=== PATIENT | male | born 1975 | race Caucasian/White ===

== ENCOUNTER 2022-01-07 18:07 | Emergency (ER) | payer OTHER, SELFPAY ==
[2022-01-07 18:47] VITALS: BP 158/98; PULSE 75; RESP 20; TEMP 36.6; O2SAT 100
--- NOTE | 2022-01-07 19:55 | ED.WOUNDLAC ---
HPI - Wound/Laceration General Chief Complaint: Wound/Laceration Stated Complaint: lac left forearm Time Seen by Provider: 01/07/22 19:40 Source: patient, RN notes reviewed and old records reviewed Mode of arrival: ambulatory Limitations: no limitations History of Present Illness HPI narrative: 46 year old male presents to [facility] care with complaints of laceration to his left forearm when he stuck his arm into closet to retrieve something and got it caught on extending nail with laceration to his forearm. occurred,Patient reports that he cleaned at home and placed bandage on arm to control bleeding. Patient denies any acute pain to site. Patient reports that his tetanus is up to date. Onset (ago): hour(s) (1 hour prior to arrival) Location: other (left forearm) Extremity Location: Left: forearm Place: home Patient tetanus UTD: Yes Treatments prior to arrival: bandage Related Data Allergies Allergy/AdvReac Type Severity Reaction Status Date / Time No Known Allergies Allergy Unknown Unknown Verified 10/23/18 12:31 Review of Systems Review of Systems: CONSTITUTIONAL: Denies fever, chills, or sweats. EYES: Denies visual changes, redness, or discharge. ENT: Denies rhinorrhea, congestion, sore throat, or otalgia. CARDIOVASCULAR: Denies chest pain, palpitations, or edema. RESPIRATORY: Denies cough or dyspnea. GASTROINTESTINAL: Denies abdominal pain, nausea, vomiting, or diarrhea. GENITOURINARY: Denies dysuria or hematuria. SKIN: Positive for laceration to left forearm MUSCULOSKELETAL: Denies back pain, joint pain, or myalgia. NEUROLOGIC: Denies headache, numbness, or weakness. PSYCHIATRIC: Denies anxiety or depression. All systems reviewed & are unremarkable except as noted in HPI and below PMFSH Family History Family History Mother Family history of malignant neoplasm Social History Social History Smoking end date: 04/11/08 Alcohol intake: current Comments At time of signature, agree with nursing past medical, surgical, social and family history. There is no relevant family history pertinent to the presenting complaint Exam Narrative: GENERAL: Well-appearing, well-nourished, and in no acute distress. HEAD: Normocephalic, atraumatic. EYES: PERRLA and EOMI. ENT: Nares clear, no rhinorrhea or epistaxis. Mucous membranes moist.TM's normal with good light reflex, throat pink with no lesions or swelling NECK: Supple.no lymphadenopathy CHEST: Clear to auscultation. No respiratory distress.SAO2 100% on room air HEART: Regular rate and rhythm. No murmur heard. Normal peripheral pulses. ABDOMEN: Soft, nontender, nondistended, normal active bowel sounds. EXTREMITIES: Normal range of motion. No edema. SKIN: Warm, dry, no rash.3cm linear laceration to lateral aspect of left forearm with small flap area at distal aspect of wound, cleansed well with flecks of paint noted in wound, some active bleeding noted noted after cleansing. NEURO: No focal deficits. Alert and oriented x3. Course Course Level of Care: Express Care Visit Vital Signs Vital signs: Vital Signs Temperature 36.6 C 01/07/22 18:47 Pulse Rate 75 01/07/22 18:47 Respiratory Rate 01/07/22 18:47 Blood Pressure 158/98 H 01/07/22 18:47 Pulse Oximetry 100 01/07/22 18:47 Oxygen Delivery Room Air 01/07/22 18:47 Temperature 36.6 C 01/07/22 18:47 Pulse Rate 75 01/07/22 18:47 Respiratory Rate 01/07/22 18:47 Blood Pressure 158/98 H 01/07/22 18:47 Pulse Oximetry 100 01/07/22 18:47 Oxygen Delivery Room Air 01/07/22 18:47 Procedures Laceration left forearm: Date: 01/07/22 Time: 19:55 Site: upper extremity Side (If applicable): left Size (cm): 3 Description: linear and flap (at distal edge) Depth: simple, single layer Local Anesthetic: lidocaine 1% Amount of an
== END 2022-01-07 20:38 | disposition home or self-care (01) ==
PROVIDERS: Emergency Provider Registered Nurse
DX: S51.812A Laceration without foreign body of left forearm, initial encounter (principal); W45.0XXA Nail entering through skin, initial encounter; Z87.891 Personal history of nicotine dependence
CPT/HCPCS: 12002; 99213; G0463

== ENCOUNTER 2023-11-29 18:15 | Emergency (ER) | payer OTHER, SELFPAY ==
--- NOTE | ~2023-11-29 | XR_ITS ---
EXAMINATION: XR finger 2nd RT min 2V DATE: 11/29/2023 18:44 INDICATION: Laceration at the distal right second digit TECHNIQUE: Dorsal palmar, lateral and 2 oblique views of the right second digit were obtained COMPARISON: None FINDINGS: Bone alignment is normal. Subtle abrupt cortical discontinuity at the tuft of the right second distal phalanx in one of the oblique images consistent with open/compound fracture. No displaced bone fragm ents identified. 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 Laceration at the tip of the right second digit. No radiopaque foreign bodies. IMPRESSION: 1. Likely tiny post traumatic open cortical defect/fracture at the tuft of the right first distal pha lanx. Reviewed, dictated and finalized at location A. IMPRESSION: 1. Likely tiny post traumatic open cortical defect/fracture at the tuft of the right first distal phalanx.
[2023-11-29 18:30] VITALS: BP 150/91; PULSE 87; RESP 16; TEMP 36.7; O2SAT 98
--- NOTE | 2023-11-29 18:58 | ED.WOUNDLAC ---
HPI - Wound/Laceration General Chief Complaint: Wound/Laceration Stated Complaint: pointer finger right hand injury Time Seen by Provider: 11/29/23 18:58 Source: patient, RN notes reviewed and old records reviewed Mode of arrival: ambulatory Limitations: no limitations History of Present Illness HPI narrative: 48-year-old male presents to the [facility] with complaints laceration to the 2nd finger right hand he obtained while using a table saw Unknown last Tdap Does have good range of motion, sensation decreased to the tip of the finger. A linear avulsion of skin noted including the fingernail. Onset (ago): hour(s) Treatments prior to arrival: other (Pressure dressing) Related Data Allergies Allergy/AdvReac Type Severity Reaction Status Date / Time No Known Allergies Allergy Unknown Unknown Verified 11/29/23 18:57 Review of Systems Review of Systems: All systems reviewed & are unremarkable except as noted in HPI and below Constitutional: Constitutional: Reports no additional constitutional complaints Eyes: Eyes: Reports no additional eye complaints ENT: Reports system reviewed and no additional complaints, except as documented Cardiovascular: Cardiovascular: Reports no additional cardiovascular complaints, Denies chest pain and Denies dyspnea Respiratory: Respiratory: Reports no additional respiratory complaints, Denies chest congestion, Denies cough and Denies dyspnea Gastrointestinal: Gastrointestinal: Reports no additional gastrointestinal complaints, Denies abdominal pain, Denies nausea and Denies vomiting Musculoskeletal: Musculoskeletal: Reports no additional musculoskeletal complaints Integumentary/Breasts: Skin/Breast: Reports as per HPI Neurologic: Reports system reviewed and no additional complaints, except as documented Psychiatric: Psychiatric: Reports no additional psychiatric complaints Allergic/Immunologic: Allergic/Immunologic: Reports no additional allergic/immunologic complaints [facility] Family History Family History Mother Family history of malignant neoplasm Social History Social History Smoking end date: 04/11/08 Alcohol intake: current Comments At the time of my signature, I reviewed and agree with the nursing past medical, surgical, social, and family history. There is no relevant family history pertinent to the patient complaint. Exam Const: General: cooperative, healthy appearing, comfortable, no acute distress, well developed, alert and well nourished Nutritional Appearance: well nourished Orientation/consciousness: patient oriented x3 Limitations: no limitations HENMT: Head: normal to inspection Ears: hearing grossly normal bilaterally and external ears normal Face/Nose/Sinus: Normal external nose present, Normal nares present, Normal nasal mucous membranes and turbinates present, normal facial exam and face symmetric Face and sinus: normal facial exam and face symmetric Eyes: General: appearance normal, both eyes and all related structures Alignment and Position: alignment normal Periorbital: periorbital findings normal Neck: Neck: normal visual inspection, full ROM, no lymphadenopathy and no meningeal signs Chest: Chest palpation & inspection: normal inspection of the chest Resp: Effort & Inspection: normal respiratory effort and able to speak in complete sentences Cardio: Rate: regular rate Rhythm: regular rhythm Skin: General skin exam: normal color and no rashes or lesions noted Lesions: no lesions Rashes: no rashes Trauma: no lacerations or abrasions Wounds: wounds noted Neuro: General: patient oriented x3, gait normal, tone normal, moves all extremities and no meningeal signs Cranial nerves: Yes Equal, round and reactive pupils present Cognition (Neuro): normal cognition Speech: normal speech Gait exam (Neuro): Normal gait present Extrem: General: n
[2023-11-29] MEDS: TETANUS,DIPHTHERIA,AC PERTUSSIS ADULT (0.5 ML) BOOSTRIX IM (19:27)
[2023-11-29] MEDS: LIDOCAINE HCL 1% LOCAL INJ 2 ML AMPUL 4 ML INFILTRATE (19:27)
== END 2023-11-29 20:01 | disposition home or self-care (01) ==
PROVIDERS: Emergency Provider Nurse Practitioner
DX: S61.310A Laceration without foreign body of right index finger with damage to nail, initial encounter (principal); W27.0XXA Contact with workbench tool, initial encounter; Z23 Encounter for immunization; Z87.891 Personal history of nicotine dependence
CPT/HCPCS: 12001; 73140; 90471; 90715; 99213; G0463